=== PATIENT | female | born 1975 | race Caucasian/White ===

== ENCOUNTER 2017-11-01 08:15 | Emergency (ER) | payer MEDICAID ==
[~2017-11-01] VITALS: Ht 152.4 cm; Wt 69.0 kg
[2017-11-01] MEDS ORDERED: KETOROLAC 60MG/2ML VIAL IM ONE (14:15)
[2017-11-01 15:00] VITALS: BP 128/71
== END 2017-11-01 15:42 | disposition home or self-care (01) ==
LOC: ER 08:35
DX: G43.909 Migraine, unspecified, not intractable, without status migrainosus (principal)
CPT/HCPCS: 96372; 99283; J1885

== ENCOUNTER 2018-12-03 18:49 | Emergency (ER) | payer MEDICAID ==
[~2018-12-03] VITALS: Ht 157.5 cm; Wt 68.0 kg
[2018-12-04] MEDS ORDERED: HYDROCODONE/ACETAMINOPHEN 5/325MG TABLET PO ONE (01:00)
[2018-12-04 03:17] VITALS: BP 119/80
== END 2018-12-04 03:20 | disposition home or self-care (01) ==
LOC: ER 18:49
DX: G43.909 Migraine, unspecified, not intractable, without status migrainosus (principal); M25.562 Pain in left knee; M25.561 Pain in right knee; H92.02 Otalgia, left ear
CPT/HCPCS: 70486; 81025; 99284